=== PATIENT | male | born 1995 | race Two or more races ===

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

== ENCOUNTER 2017-09-24 12:41 | Emergency (ER) | payer OTHER ==
[~2017-09-24] VITALS: Ht 172.7 cm; Wt 124.7 kg
[2017-09-24] MEDS ORDERED: ACETAMINOPHEN ES 500 MG TABLET ONE (13:23)
--- NOTE | 2017-09-24 13:28 | NUR ---
PATIENT WAS SEEN BY . CT COMPLETE. DC AD FOLLOW UP INSTRUCTIONS GIVEN AND EXPLAINED TO PATIENT WHO STATES HE UNDERSTANDS ALL INSTRUCTIONS. HE IS AWAKE, ALERT, ORIENTED X 4 IN NO DISTRESS. AMBULATES WITH STEADY GAIT.
[2017-09-24] MEDS ORDERED: ACETAMINOPHEN 325 MG TABLET PO ONE (13:30)
== END 2017-09-24 13:36 | disposition home or self-care (01) ==
LOC: ER 12:41
DX: F07.81 Postconcussional syndrome (principal)
CPT/HCPCS: 70450; A4663; A9150

== ENCOUNTER 2018-01-29 17:26 | Emergency (ER) | payer SELFPAY ==
[~2018-01-29] VITALS: Ht 170.2 cm; Wt 124.7 kg
--- NOTE | 2018-01-29 18:49 | NUR ---
Dr Couch at the bedside for MSE.
[2018-01-29] MEDS ORDERED: IBUPROFEN 800 MG TABLET PO ONE (19:30)
[2018-01-29] MEDS ORDERED: IBUPROFEN 800 MG TABLET ONE (19:47)
--- NOTE | 2018-01-29 20:20 | NUR ---
Patient discharged to home in stable conditon. Written and verbal after care instructions given. Patient verbalizes understanding of instructions.
== END 2018-01-29 20:28 | disposition home or self-care (01) ==
LOC: ER 17:28
DX: R10.9 Unspecified abdominal pain (principal); G89.11 Acute pain due to trauma; W01.0XXA Fall on same level from slipping, tripping and stumbling without subsequent striking against object, initial encounter; Y93.89 Activity, other specified; Y92.89 Other specified places as the place of occurrence of the external cause; Y99.8 Other external cause status
CPT/HCPCS: 74176; 99284; A4663

== ENCOUNTER 2019-07-27 21:01 | Emergency (ER) | payer MEDICAID ==
[~2019-07-27] VITALS: Ht 172.7 cm; Wt 124.7 kg
--- NOTE | 2019-07-27 22:59 | NUR ---
Patient discharged to home in stable conditon. Written and verbal after care instructions given. Patient verbalizes understanding of instructions. Patient ambulating with steady gait
[2019-07-27 23:00] VITALS: BP 122/83
== END 2019-07-27 22:59 | disposition home or self-care (01) ==
LOC: ER 21:04
DX: J06.9 Acute upper respiratory infection, unspecified (principal); F10.10 Alcohol abuse, uncomplicated; F17.200 Nicotine dependence, unspecified, uncomplicated
CPT/HCPCS: A4663

== ENCOUNTER 2019-08-10 18:13 | Emergency (ER) | payer MEDICAID ==
[~2019-08-10] VITALS: Ht 170.2 cm; Wt 124.7 kg
--- NOTE | 2019-08-10 19:24 | NUR ---
Dr. Nice at bedside for MSE
--- NOTE | 2019-08-10 19:30 | NUR ---
Patient discharged to home in stable conditon. Written and verbal after care instructions given. Patient verbalizes understanding of instructions. Patient ambulating with steady gait
[2019-08-10 19:33] VITALS: BP 132/71
== END 2019-08-10 19:30 | disposition home or self-care (01) ==
LOC: ER 18:14
DX: J20.9 Acute bronchitis, unspecified (principal); F17.200 Nicotine dependence, unspecified, uncomplicated; Z60.2 Problems related to living alone
CPT/HCPCS: A4663

== ENCOUNTER 2019-08-20 17:46 | Emergency (ER) | payer SELFPAY ==
[~2019-08-20] VITALS: Ht 170.2 cm; Wt 77.1 kg
--- NOTE | 2019-08-20 21:21 | NUR ---
MSE COMPLETED, PT D/C'D HOME, ACI/RX X1 GIVEN. PT AMB W/O DIFF/TOOK ALL BELONGINGS.
[2019-08-20 21:22] VITALS: BP 122/74
== END 2019-08-20 21:23 | disposition home or self-care (01) ==
LOC: ER 17:46
DX: R05 Cough (principal); F17.200 Nicotine dependence, unspecified, uncomplicated; Z60.2 Problems related to living alone
CPT/HCPCS: 71046; 93005; A4663

== ENCOUNTER 2019-12-16 14:03 | Emergency (ER) | payer MEDICAID ==
[~2019-12-16] VITALS: Ht 172.7 cm; Wt 107.5 kg
--- NOTE | 2019-12-16 14:26 | NUR ---
Patient discharged to home in stable condition. Written and verbal after care instructions given. Patient verbalizes understanding of instructions. Stressed follow up or return to ER for worsening s/s. ALL BELONGINGS W/ PT
[2019-12-16 14:27] VITALS: BP 132/87
== END 2019-12-16 14:28 | disposition home or self-care (01) ==
LOC: ER 14:06
DX: L25.8 Unspecified contact dermatitis due to other agents (principal); R05 Cough; F17.210 Nicotine dependence, cigarettes, uncomplicated
CPT/HCPCS: A4663

== ENCOUNTER 2020-05-24 09:56 | Emergency (ER) | payer MEDICAID ==
[~2020-05-24] VITALS: Ht 172.7 cm; Wt 111.1 kg
--- NOTE | 2020-05-24 10:23 | NUR ---
MD@bedside, medical screening exam in progress
[2020-05-24] MEDS ORDERED: IBUPROFEN 800 MG TABLET PO ONE (10:30)
[2020-05-24] MEDS ORDERED: MAG HYDROX/AL HYDROX/SIMETH 30 ML LIQUID UDC PO ONE (10:45)
[2020-05-24] MEDS ORDERED: LIDOCAINE VISCUS 2% 15 ML UDC MM ONE (10:45)
[2020-05-24] MEDS ORDERED: LIDOCAINE VISCUS 2% 15 ML UDC ONE (10:54)
[2020-05-24] MEDS ORDERED: MAG HYDROX/AL HYDROX/SIMETH 30 ML LIQUID UDC ONE (10:54)
[2020-05-24] MEDS ORDERED: IBUPROFEN 800 MG TABLET ONE (10:54)
[2020-05-24] MEDS: ALBUTEROL SULFATE 8 GM HFA.AER.AD IH PRN ×2 (10:57→11:40)
[2020-05-24 12:15] LABS: BASOPHILS # (AUTO) 0.1 K/uL (0.0-8.0); BASOPHILS % (AUTO) 0.8 % (0.0-2.0); EOSINOPHILS # (AUTO) 0.2 K/uL (0.0-0.7); EOSINOPHILS % (AUTO) 1.6 % (0.0-7.0); HEMATOCRIT 47.9 % (36.7-47.1); HEMOGLOBIN 16.4 g/dL (12.5-16.3); LYMPHOCYTES # (AUTO) 2.1 K/uL (20.0-40.0); LYMPHOCYTES % (AUTO) 21.1 % (20.5-51.5); MEAN CORPUSCULAR HEMOGLOBIN 29.7 uug (23.8-33.4); MEAN CORPUSCULAR HGB CONC 34 g/dL (32.5-36.3); MONOCYTES # (AUTO) 0.7 K/uL (2.0-10.0); MONOCYTES % (AUTO) 6.7 % (0.0-11.0); NEUTROPHILS # (AUTO) 6.8 K/uL (1.8-8.9); NEUTROPHILS % (AUTO) 69.8 % (38.5-71.5); PLATELET COUNT (AUTO) 252 K/uL (152-348); WHITE BLOOD COUNT (AUTO) 9.8 K/uL (3.6-10.2)
[2020-05-24 12:40] LABS: CREATININE 0.9 mg/dL (0.6-1.3)
[2020-05-24 12:53] LABS: BILIRUBIN,DIRECT 0.1 mg/dL (0.0-0.2); BILIRUBIN,TOTAL 0.4 mg/dL (0.2-1.0); TOTAL PROTEIN, SERUM 8.1 g/dL (6.4-8.2)
--- NOTE | 2020-05-24 13:44 | NUR ---
Patient discharged to home in stable condition with brisk steady gait. Written and verbal after care instructions given. Patient verbalizes understanding & compliance of instructions. Stressed follow up with primary doctor (internal medicine/family medicine doctor) or return to ER for worsening s/s.
== END 2020-05-24 13:44 | disposition home or self-care (01) ==
LOC: ER 09:58
DX: R05 Cough (principal); R10.13 Epigastric pain; R07.2 Precordial pain; E66.9 Obesity, unspecified; Z68.37 Body mass index [BMI] 37.0-37.9, adult; I49.8 Other specified cardiac arrhythmias; Z87.891 Personal history of nicotine dependence; Z20.828 Contact with and (suspected) exposure to other viral communicable diseases
CPT/HCPCS: 36415; 70030-TC; 71045; 76700; 83690; 85025; 93005; A4663; J3535

== ENCOUNTER 2020-07-05 17:47 | Emergency (ER) | payer MEDICAID ==
[~2020-07-05] VITALS: Ht 170.2 cm; Wt 108.9 kg
--- NOTE | 2020-07-05 18:34 | NUR ---
Pandemic disaster charting/ potential for "out of patient safety ratio" staffing in ER: pending MD evaluation@this time, NAD,calm, respiration:easy
--- NOTE | 2020-07-05 18:57 | NUR ---
Hands off report given to LUZ crespo
[2020-07-05 19:13] VITALS: BP 128/88
--- NOTE | 2020-07-05 19:13 | NUR ---
Patient discharged to home in stable condition. Written and verbal after care instructions given. Patient verbalizes understanding of instructions. Stressed follow up or return to ER for worsening s/s.
== END 2020-07-05 19:14 | disposition home or self-care (01) ==
LOC: ER 17:50
DX: R05 Cough (principal)
CPT/HCPCS: A4663

== ENCOUNTER 2020-07-05 21:55 | Emergency (ER) | payer MEDICAID ==
[~2020-07-05] VITALS: Ht 170.2 cm; Wt 108.9 kg
--- NOTE | 2020-07-05 22:44 | NUR ---
MSE COMPLETED, PT ELOPED AFTER MD STATED HE DID NOT NEED A NARCOTIC RX
== END 2020-07-05 22:46 | disposition left against medical advice (07) ==
LOC: ER 21:56
DX: Z76.0 Encounter for issue of repeat prescription (principal); R05 Cough
CPT/HCPCS: A4663

== ENCOUNTER 2022-11-23 03:13 | Emergency (ER) | payer MEDICAID, OTHER ==
[~2022-11-23] VITALS: Ht 170.2 cm; Wt 99.8 kg
[2022-11-23] MEDS ORDERED: TETRACAINE HCL 0.5% OPHT DROP 2 ML BOTTLE ONE (03:29)
[2022-11-23] MEDS ORDERED: FLUORESCEIN SODIUM 1 MG STRIP ONE (03:29)
[2022-11-23] MEDS ORDERED: TETRACAINE HCL 0.5% OPHT DROP 2 ML BOTTLE OP ONE (03:30)
[2022-11-23] MEDS ORDERED: FLUORESCEIN SODIUM 1 MG STRIP OP ONE (03:30)
[2022-11-23] MEDS ORDERED: LIDOCAINE HCL 1% 20 ML VIAL IJ ONE (03:30)
[2022-11-23] MEDS ORDERED: LIDOCAINE HCL 1% 20 ML VIAL ONE (03:35)
[2022-11-23] MEDS ORDERED: TDAP DIPH,PERTUSS,TET VAC/PF 0.5 ML DISP.SYRIN IM ONE ×2 (03:35→03:45)
--- NOTE | 2022-11-23 04:00 | NUR ---
Dr. Huitron in room suturing patient.
[2022-11-23] MEDS ORDERED: ACETAMINOPHEN ES 500 MG TABLET PO ONE (04:30)
[2022-11-23] MEDS ORDERED: POLY10DR6 LEFTEYE (04:33)
[2022-11-23] MEDS ORDERED: ACET325T53 PO (04:33)
[2022-11-23] MEDS ORDERED: ACETAMINOPHEN ES 500 MG TABLET ONE (04:37)
--- NOTE | 2022-11-23 04:40 | NUR ---
Patient discharged to home in stable condition. Written and verbal after care instructions given. Patient verbalizes understanding of instructions. Stressed follow up or return to ER for worsening s/s. Patient walked out with steady gait.
[2022-11-23 04:50] VITALS: BP 140/90
== END 2022-11-23 04:48 | disposition home or self-care (01) ==
LOC: ER 03:13
DX: S01.112A Laceration without foreign body of left eyelid and periocular area, initial encounter (principal); Y04.2XXA Assault by strike against or bumped into by another person, initial encounter; Y93.89 Activity, other specified; Y92.89 Other specified places as the place of occurrence of the external cause; Y99.8 Other external cause status
CPT/HCPCS: 99283; 90715; 90471; 12013; J3490; A4663; A9150

== ENCOUNTER 2022-11-29 14:00 | Emergency (ER) | payer OTHER ==
[~2022-11-29] VITALS: Ht 170.2 cm; Wt 99.8 kg
[~2022-11-29 14:00] MED LIST: ACET325T53 PO; POLY10DR6 LEFTEYE
--- NOTE | 2022-11-29 14:12 | NUR ---
PT WAS D/C'd TO HOME AFTER DR WILSON EVALUATION. D/C INSTRUCTIONS GIVEN TO THE PT BY DR WILSON.
[2022-11-29 14:14] VITALS: BP 140/74
== END 2022-11-29 14:16 | disposition home or self-care (01) ==
LOC: ER 14:00
DX: S01.112D Laceration without foreign body of left eyelid and periocular area, subsequent encounter (principal); Z79.899 Other long term (current) drug therapy; X58.XXXD Exposure to other specified factors, subsequent encounter
CPT/HCPCS: A4663

== ENCOUNTER 2024-09-08 19:50 | Emergency (ER) | payer OTHER ==
[~2024-09-08] VITALS: Ht 170.2 cm; Wt 122.5 kg
[2024-09-08 20:16] LABS: BASOPHILS % (AUTO) 0.5 % (0.0-2.0); EOSINOPHILS # (AUTO) 0.1 K/uL (0.0-0.7); EOSINOPHILS % (AUTO) 1.2 % (0.0-7.0); HEMATOCRIT 40.5 % (36.7-47.1); HEMOGLOBIN 13.8 g/dL (12.5-16.3); LYMPHOCYTES # (AUTO) 1.6 K/uL (0.8-4.8); LYMPHOCYTES % (AUTO) 17.9 % (20.5-51.5); MEAN CORPUSCULAR HEMOGLOBIN 29.2 uug (23.8-33.4); MEAN CORPUSCULAR HGB CONC 34 g/dL (32.5-36.3); MEAN CORPUSCULAR VOLUME 85.5 fL (73.0-96.2); MONOCYTES # (AUTO) 0.5 K/uL (0.1-1.30); MONOCYTES % (AUTO) 5.6 % (0.0-11.0); NEUTROPHILS # (AUTO) 6.8 K/uL (1.8-8.9); NEUTROPHILS % (AUTO) 74.8 % (38.5-71.5); PLATELET COUNT (AUTO) 256 K/uL (152-348); RED BLOOD CELL COUNT(AUTO) 4.73 MIL/uL (4.06-5.63); RED CELL DISTRIBUTION WIDTH 14.1 % (12.1-16.2)
[2024-09-08 20:23] LABS: DIFFERENTIAL COMMENT 1
[2024-09-08 20:24] LABS: *BILIRUBIN,URIN 1+ (NEGATIVE); *BLOOD, URINE NEGATIVE (NEGATIVE); *CLARITY,URINE CLEAR (CLEAR); *KETONES,URINE 1+ (NEGATIVE); *PROTEIN,URINE 1+ (NEGATIVE); *UROBILINOGEN,URINE 0.2 E.U./dl (NORMAL); LEUKOCYTE ESTERASE ,URINE NEGATIVE (NEGATIVE); NITRITE, URINE NEGATIVE (NEGATIVE); PH,URINE 5.5 (5.0-8.0); UGLUCOSE NEGATIVE (NEGATIVE)
[2024-09-08 20:26] LABS: *COLOR,URINE DARK YELLOW (YELLOW)
[2024-09-08 20:29] LABS: CALCIUM 8.5 mg/dL (8.5-10.1); CREATININE 0.9 mg/dL (0.6-1.3); POTASSIUM 3.4 mmol/L (3.5-5.1)
[2024-09-08 20:34] LABS: ALBUMIN 3.5 g/dL (3.4-5.0); BILIRUBIN,TOTAL 0.6 mg/dL (0.2-1.0); TOTAL PROTEIN, SERUM 6.8 g/dL (6.4-8.2)
[2024-09-08 20:38] LABS: RBC,URINE 0-3 /HPF (0-3); WBC,URINE 0-3 /HPF (0-3)
[2024-09-08 20:40] LABS: BACTERIA,URINE NONE SEEN /HPF (NONE SEEN); MUCUS,URINE MODERATE /LPF (0-FEW); SQUAMOUS EPITHELIAL CELL,UR FEW /HPF (NONE SEEN)
[2024-09-08 20:44] LABS: *AMPHETAMINE, URINE NEGATIVE (NEGATIVE); *BARBITURATE, URINE NEGATIVE (NEGATIVE); *BENZODIAZEPINE, URINE NEGATIVE (NEGATIVE); *CANNABINOID, URINE POSITIVE (NEGATIVE); *COCCAINE, URINE NEGATIVE (NEGATIVE); *OPIATE, URINE NEGATIVE (NEGATIVE); *PHENCYCLIDINE SCREEN,URINE NEGATIVE (NEGATIVE); FENTANYL, URINE NEGATIVE (NEGATIVE)
[2024-09-08] MEDS: IV NS 1000 ML 1,000 ML IV ONE (20:59)
[2024-09-08] MEDS ORDERED: KETOROLAC TROMETHAMINE 30 MG INJ ONE (21:01)
[2024-09-08] MEDS ORDERED: ONDANSETRON 4 MG/2 ML VIAL ONE (21:01)
[2024-09-08] MEDS: KETOROLAC TROMETHAMINE 30 MG INJ IVP ONE (21:04)
[2024-09-08] MEDS: ONDANSETRON 4 MG/2 ML VIAL IV ONE (21:05)
[2024-09-08 22:51] VITALS: O2SAT 99
== END 2024-09-09 00:39 | disposition left against medical advice (07) ==
LOC: ER 19:50
DX: J11.1 Influenza due to unidentified influenza virus with other respiratory manifestations (principal); R06.02 Shortness of breath; R11.0 Nausea; R10.9 Unspecified abdominal pain; Z20.822 Contact with and (suspected) exposure to COVID-19; Z60.2 Problems related to living alone
CPT/HCPCS: 99285; 74176; 96374; 96361; 71045; 96375; 87426; 87804 ×2; 80053; 81001; 83690; 85025; 87040; 36415; 80307; J1885; J2405; J7040; A4606; A4663